=== PATIENT | male | born 1975 | race Caucasian/White ===

== ENCOUNTER 2021-10-27 00:15 | Emergency (ER) | payer MEDICAID ==
[2021-10-27] MEDS ORDERED: Hydromorphone 1 mg/ml Injection ONE (00:36)
--- NOTE | 2021-10-27 00:50 | ERPHSYRPT ---
- History of Present Illness Time Seen by Provider: 10/27/21 00:17 Source: patient Exam Limitations: no limitations Physician History: 46 years old male presented in the ER chief complaint of laceration right knee almost 2 h ago when he was sharpening walking stick and tool accidentally slipped and jabbed into his right knee with a laceration. There was bleeding initially but stopped with applying pressure dressing. Pain was not getting better and is getting worse, reports moderate to severe sharp pain with minimal movements at knee with radiation up in the medial thigh. Partial relief with being still in a certain position. Spasming of muscles in the right thigh. Method of Injury: incised Occurred: hours ago (2) Quality: constant, stabbing Severity of Pain-Max: severe Severity of Pain-Current: severe Lower Extremities Pain: knee: right Modifying Factors: Improves With: immobilization. Worsens With: movement Associated Symptoms: unable to bear weight Allergies/Adverse Reactions: amoxicillin Allergy (Intermediate, Verified 10/27/21 00:39) Rash pt thinks it gives him a rash, but he is not for sure Home Medications: No Reportable Medications [No Reported Medications] 08/17/16 [History] Hx Tetanus, Diphtheria Vaccination/Date Given: Yes (UP TO DATE) Hx Influenza Vaccination/Date Given: No Hx Pneumococcal Vaccination/Date Given: No - Review of Systems Constitutional: No Symptoms Eyes: No Symptoms Ears, Nose, & Throat: No Symptoms Respiratory: No Symptoms Cardiac: No Symptoms Abdominal/Gastrointestinal: No Symptoms Musculoskeletal: Injury, Joint Pain Skin: Skin Lesions Neurological: No Symptoms Psychological: No Symptoms Endocrine: No Symptoms Hematologic/Lymphatic: No Symptoms Immunological/Allergic: No Symptoms - Past Medical History Pertinent Past Medical History: Yes Neurological History: Seizures ENT History: No Pertinent History Cardiac History: No Pertinent History Respiratory History: No Pertinent History Endocrine Medical History: No Pertinent History Musculoskeletal History: Arthritis GI Medical History: No Pertinent History History: No Pertinent History Psycho-Social History: Attention Deficit Disorder, Depression Male Reproductive Disorders: No Pertinent History - Past Surgical History Past Surgical History: Yes Other Surgical History: CATARACT. LYMPH NODE REMOVED - Social History Smoking Status: Current every day smoker How long have you smoked: 20 yrs Exposure to second hand smoke: Yes Drug Use: marijuana Patient Lives Alone: No - Nursing Vital Signs Nursing Vital Signs: Initial Vital Signs Pulse Rate 88 10/27/21 00:15 Respiratory Rate 22 10/27/21 00:15 Blood Pressure 138/81 10/27/21 00:15 O2 Sat by Pulse Oximetry 99 10/27/21 00:15 Pain Scale Pain Intensity 8 - Physical Exam General Appearance: no apparent distress, alert Eyes, Ears, Nose, Throat Exam: normal ENT inspection Neck Exam: normal inspection, non-tender, supple, full range of motion Cardiovascular/Respiratory Exam: normal breath sounds, regular rate/rhythm Gastrointestinal/Abdominal Exam: non-tender, soft, no organomegaly Back Exam: normal inspection, normal range of motion Hips Exam: bilateral: non-tender, normal inspection Knees Exam: right knee: soft tissue tenderness, swelling, other (5 cm laceration oblique on anterolateral/superior aspect of patella deep going underneath patella into the joint), left knee: non-tender, normal inspection, normal range of motion, no evidence of injury Neuro/Tendon Exam: normal sensation, No normal tendon functions Mental Status Exam: alert, oriented x 3, cooperative Skin Exam: normal color SpO2 Interpretation: normal SpO2: 96 O2 Delivery: Room Air Procedures - Laceration/Wound Repair Right Knee Time of Procedure: 01:13 Wound Location: Right Wound Length (cm): 5 Wound's Depth, Shape: into muscle, linear Wound Explored: clean Irrigated: Yes (2L NS) Hibiclens Prep: Yes Anesthesia: 1% lidocaine w/ Epi Volume Anesthetic (ccs): 6 Wound Repaired With: sutures Suture Size/Type: 3-0, prolene Number of Sutures: 6 Layer Closure?: No Sterile Dressing Applied?: Yes Splint Applied?: Yes Ordered Tests: Medication Summary Discontinued Medications Generic Name Dose Route Start Last Admin Trade Name Adelina PRN Reason Stop Dose Admin Ciprofloxacin Confirm 10/27/21 01:13 Ciprofloxacin 500 Mg Tablet Administered 10/27/21 01:14 Dose 500 mg .ROUTE .STK-MED ONE Ciprofloxacin 500 mg 10/27/21 01:22 10/27/21 01:24 Ciprofloxacin 500 Mg Tablet PO 10/27/21 01:23 500 mg STAT ONE Administration Diphtheria/Tetanus/Acell Pertussis 0.5 ml 10/27/21 01:24 10/27/21 01:26 Tdap --Diph,Pertuss(Acell),Tet Vac/Pf 0.5 Ml Vial IM 10/27/21 01:25 0.5 ml .ONCE ONE Administration Hydromorphone HCl Confirm 10/27/21 00:36 Hydromorphone 1 Mg/1ml Inj 1 Mg/Ml Syringe Administered 10/27/21 00:37 Dose 1 mg .ROUTE .STK-MED ONE Hydromorphone HCl 1 mg 10/27/21 01:18 10/27/21 01:23 Hydromorphone 1 Mg/1ml Inj 1 Mg/Ml Syringe IM 10/27/21 01:19 1 mg STAT ONE Administration Clindamycin HCl/Dextrose Confirm 10/27/21 01:13 Clindamycin-D5w 900 Mg/50 Ml Administered 10/27/21 01:14 Dose 900 mg in 50 mls @ ud IV .STK-MED ONE Clindamycin HCl/Dextrose 900 mg in 50 mls @ 100 mls/hr 10/27/21 01:23 10/27/21 01:27 Clindamycin-D5w 900 Mg/50 Ml IV 10/27/21 01:52 100 mls/hr STAT STA 100 mls/hr Administration Morphine Sulfate Confirm 10/27/21 01:02 Morphine Sulfate 4 Mg/Ml Injection Administered 10/27/21 01:03 Dose 4 mg .ROUTE .STK-MED ONE Morphine Sulfate 4 mg 10/27/21 01:18 10/27/21 01:24 Morphine Sulfate 4 Mg/Ml Injection IV 10/27/21 01:19 4 mg STAT ONE Administration Ondansetron HCl Confirm 10/27/21 01:02 Ondansetron Hcl 4 Mg/2 Ml Vial Administered 10/27/21 01:03 Dose 4 mg .ROUTE .STK-MED ONE Ondansetron HCl 4 mg 10/27/21 01:18 10/27/21 01:23 Ondansetron Hcl 4 Mg/2 Ml Vial IV 10/27/21 01:19 4 mg STAT ONE Administration Oxycodone/Acetaminophen 2 tab 10/27/21 01:25 10/27/21 01:26 Oxycodone / Apap 10/325 Mg 1 Tablet PO 10/27/21 01:26 2 tab SENT HOME W/ PATIENT STA Administration Oxycodone/Acetaminophen Confirm 10/27/21 01:26 Oxycodone / Apap 10/325 Mg 1 Tablet Administered 10/27/21 01:27 Dose 2 tab .ROUTE .STK-MED ONE Tetanus/Diphtheria Toxoids Adsorbed Confirm 10/27/21 01:13 Tetanus And Diphtheria Tox/Pf 0.5 Ml Vial Administered 10/27/21 01:14 Dose 0.5 ml IM .STK-MED ONE - Progress Progress: pain not gone completely Progress Note: Is given pain medication, thoroughly washed with normal saline. Given a dose of clindamycin and ciprofloxacin after discussion with Dr. Ott [facility], recommended skin closure, making patient n.p.o. and outpatient follow-up in the morning at [facility] and joint clinic. Placed in knee immobilizer. Plan discussed with patient in detail and he will follow up with him in the morning. 10/27/21 01:[address] Other (Dr. Ott [facility]) Counseled pt/family regarding: diagnosis, need for follow-up - Departure Departure Disposition: Home Clinical Impression: Laceration of knee with tendon involvement Qualifiers: Encounter type: initial encounter Laterality: right Qualified Code(s): S81.011A - Laceration without foreign body, right knee, initial encounter Condition: Stable Critical Care Time: No Referrals: DOCTOR,NO FAMILY [Primary Care Provider] - Follow up/PCP as directed CONY OTT [NON-STAFF PHY W/O PRIVILEGES] - Follow up/PCP as directed (8 AM in the morning at bone and joint[facility]fracture clinic.) Instructions: Laceration Repair With Stitches (DC) Additional Instructions: Do not eat or drink anything from now onward. Follow-up with Dr. Ott at bone and joint/fracture clinic in [place] at 8 AM for further evaluation and possible operative intervention.
[2021-10-27 00:53] VITALS: O2SAT 96
[2021-10-27] MEDS ORDERED: MORPHINE SULFATE 4 MG INJ ONE (01:02)
[2021-10-27] MEDS ORDERED: Zofran 4 MG/2 ML VIAL ONE (01:02)
[2021-10-27] MEDS ORDERED: TENIVAC VIAL IM ONE (01:13)
[2021-10-27] MEDS ORDERED: CLINDAMYCIN-D5W 900 MG/50 ML*** 900 MG/50 ML BAG IV ONE (01:13)
[2021-10-27] MEDS ORDERED: Cipro 500 MG ONE (01:13)
[2021-10-27] MEDS ORDERED: Hydromorphone 1 mg/ml Injection IM ONE (01:18)
[2021-10-27] MEDS ORDERED: Zofran 4 MG/2 ML VIAL IV ONE (01:18)
[2021-10-27] MEDS ORDERED: MORPHINE SULFATE 4 MG INJ IV ONE (01:18)
[2021-10-27] MEDS ORDERED: Cipro 500 MG PO ONE (01:22)
[2021-10-27] MEDS ORDERED: CLINDAMYCIN-D5W 900 MG/50 ML*** 900 MG/50 ML BAG IV STA (01:23)
[2021-10-27] MEDS ORDERED: Adacel Vial IM ONE (01:24)
[2021-10-27] MEDS ORDERED: OXYCODONE-ACETAMINOPHEN 10-325 PO STA (01:25)
[2021-10-27] MEDS ORDERED: OXYCODONE-ACETAMINOPHEN 10-325 ONE (01:26)
[2021-10-27 01:55] VITALS: BP 127/79; PULSE 82
== END 2021-10-27 01:50 | disposition home or self-care (01) ==
LOC: ED 00:15
DX: S81.011A Laceration without foreign body, right knee, initial encounter (principal); S76.921A Laceration of unspecified muscles, fascia and tendons at thigh level, right thigh, initial encounter; W27.8XXA Contact with other nonpowered hand tool, initial encounter; Z72.0 Tobacco use
CPT/HCPCS: 12002; 36000; 90471; 90714; 90715; 96372; 96374; 96375; 99284; J1170; J2270; J2405; L1830; A9270-GY